=== PATIENT | female | born 1975 | race Caucasian/White ===

== ENCOUNTER 2017-03-09 18:16 | Emergency (ER) | payer OTHER ==
[~2017-03-09 18:16] MED LIST: AMITRYPTYLINE PO; BACTRIM DS TABL1 TA1 PO; BACTRIM DS TABL1 TAB PO; BUDEPRION XL150 MG PO; BUSPAR PO; BUSPAR15 MG PO; BUSPAR5 MG PO; BUSPIRONE HCL7.5 MG PO; CELEXA20 MG PO; CHANTIX PO; CHANTIX1 DOSE-PAC; CIPRO PO; CITALOPRAM HBR40 MG PO; CLARITIN D PO; CLARITIN10 MG PO; DEPAKOTE PO; DESYREL50 M1 PO; DICYCLOMINE HCL20 MG PO; FAMOTIDINE PO; FLEXERIL10 MG PO; FLOMAX0.4 M1 PO; FLOMAX0.4 MG PO; FLONASE16 GM; FLONASE16 GM INH; GABAPENTIN300 MG PO; HYDROCODON-ACE1 EAC1 PO; HYDROCODON-ACE1 EAC7 PO; HYDROXYZINE HCL50 MG PO; IBUPROFEN PO; IBUPROFEN800 MG; IBUPROFEN800 MG PO; IMITREX PO; KEFLEX500 MG PO; LEVAQUIN750 MG PO; LOPID600 MG PO; LORTAB 5/500 TA1 TA1 PO; LORTAB 7.5-5001 TAB PO; MOTRIN400 MG PO; MULTIVITAMIN1 UDCAP PO; NAPROSYN500 MG PO; NEURONTIN PO; NEURONTIN300 MG PO; NEXIUM PO; NORCO 7.5-3251 EACH PO; OMEPRAZOLE20 M2; OMEPRAZOLE40 M1 PO; PEN-VEE K PO; PERCOCET5/325 PO; PHENERGAN PO; PHENERGAN SUPP25 MG PR; PHENERGAN12.5 MG PO; PHENERGAN25 MG PO; PREDNISONE PO; PRILOSEC PO; PRILOSEC20 M1 PO; PYRIDIUM PO; PYRIDIUM100 MG PO; TRAZODONE PO; ULTRAM PO; VESICARE PO; VESICARE5 MG PO; VICODIN 5/1 TAB 5/50 PO; VOLTAREN75 MG PO; WELLBUTRIN; WELLBUTRIN SR150 MG; WELLBUTRIN SR150 MG PO; ZOFRAN PO
[2017-03-09] MEDS ORDERED: [UNRECOGNIZED DRUG - CODE] (18:38)
[2017-03-09] MEDS ORDERED: SYMBICORT80 INH (18:38)
[2017-03-09] MEDS ORDERED: RIZATRIPTAN5 M1 PO (18:39)
== END 2017-03-09 19:00 | disposition home or self-care (01) ==
LOC: SED 18:16
DX: J02.0 Streptococcal pharyngitis (principal); F17.210 Nicotine dependence, cigarettes, uncomplicated; Z79.899 Other long term (current) drug therapy; Z88.5 Allergy status to narcotic agent; Z88.8 Allergy status to other drugs, medicaments and biological substances
CPT/HCPCS: 87651; 99283